=== PATIENT | male | born 1960 | race Caucasian/White ===

== ENCOUNTER 2018-10-02 14:11 | Inpatient (IN) ==
[2018-10-02] MEDS: NS 1,000 ML IV SCH (19:18)
[2018-10-02] MEDS: LOVENOX SUBQ SCH (19:19)
[2018-10-02] MEDS: LEVAQUIN 500 MG/D5W 500 MG/100 ML IVPB IV SCH (19:19)
[2018-10-02 19:40] LABS: BASO# 0.03 X1000 (0.0-0.2); BASO% 0.2 % (0.0-0.8); EOS# 0.12 X1000 (0.0-0.7); EOS% 0.8 % (0.0-10.0); HEMOGLOBIN 15.6 g/dL (14.0-18.0); IMM GRAN# 0.14 X1000 (0.0-0.04); LYMPH# 2.93 X1000 (1.2-3.4); LYMPH% 20.1 % (20.5-51.1); MCH 31.1 PG (27-31); MCHC 34.7 g/dL (33-37); MCV 89.6 FL (81-99); MONO# 0.85 X1000 (0.11-0.59); MONO% 5.8 % (1.7-9.3); MPV 11.7 FL (7.4-10.4); NEUT# 10.51 X1000 (1.4-6.5); NEUT% 72.1 % (42.2-75.2); PLT 178 X1000 (130-400); RBC 5.02 XMIL (4.7-6.1); RDW 13.6 % (11.5-14.5); WBC 14.58 X1000 (4.8-10.8)
[2018-10-02 19:53] LABS: HEMOGLOBIN A1C 5.2 % (4.8-6.0)
[2018-10-02 19:57] LABS: AGAP 11; ALB/GLOB RATIO 1.8; ALBUMIN 3.8 g/dL (3.5-5.0); ALKALINE PHOSPHATASE 79 U/L (32-122); BUN 16 mg/dL (8-22); CALCIUM 8.7 mg/dL (8.8-10.2); CHLORIDE 105 mmol/L (98-107); COSMO 285; CREATININE 0.7 mg/dL (0.7-1.2); ESTIMATED GFR > 60; GLUCOSE 106 mg/dL (70-104); GOT 13 U/L (10-34); GPT 22 U/L (10-44); POTASSIUM 3.5 mmol/L (3.5-5.1); SODIUM 142 mmol/L (136-145); TCO2 26 mmol/L (25-35); TOTAL BILIRUBIN 0.41 mg/dL (0.20-1.00); TOTAL PROTEIN 5.9 g/dL (6.3-8.3)
[2018-10-02] MEDS ORDERED: SODIUM CHLORIDE 0.9% INJ SCH (20:00)
[2018-10-02] MEDS: DUONEB (A & A) INH PRN (21:10)
[2018-10-02] MEDS: AMBIEN PO SCH (21:18)
[2018-10-02] MEDS: PROTONIX IV SCH (21:18)
[2018-10-02] MEDS: ROCEPHIN 1 GM in NS 50 ML IV SCH (21:19)
[2018-10-02] MEDS: NEURONTIN PO SCH (21:19)
[2018-10-02] MEDS: SEROQUEL PO SCH (21:19)
[2018-10-02] MEDS: LIPITOR PO SCH (21:19)
[2018-10-02] MEDS: HUMALOG SUBQ SCH (21:20)
[2018-10-02] MEDS: CARDIZEM PO SCH (21:20)
[2018-10-02 21:29] LABS: ALLEN TEST YES; BE 4.8 mmoll (-3.0-3.0); BLOOD TYPE ARTERIAL; HCO3-(ACT) 28.4 mmoll (20.0-26.0); METHB 0.9 % (0.0-1.5); O2(CT) 19.5 mL/dL (15.0-23.0); PCO2(98.6) 41 mmHg (35-45); PO2(98.6) 75 mmHg (60-100); SAMPLE BLOOD; SAO2 97.2 % (95.0-100.0); THB 15.8 g/dL (11.5-17.4); pH(98.6) 7.46 (7.35-7.45)
[2018-10-02 21:33] LABS: O2HB 87.6 % (95.0-99.0)
--- NOTE | 2018-10-03 00:49 | HISTORY AND PHYSICAL ---
CHIEF COMPLAINT: Shortness of breath, cough, and wheezing. HISTORY OF PRESENT ILLNESS: He is a 57-year-old white male with a known history of generalized chronic anxiety, bipolar disorder. Recently discharged from [facility] by Dr. Mason. Came in with the above symptoms. Patient was treated 2 weeks ago. Failed to improve. He is markedly wheezing. I have given the options. I discharged the patient from my office with outpatient treatment. He came back in the afternoon that he is not feeling better, and readmitted to the hospital with acute COPD exacerbation. PAST MEDICAL HISTORY: Bipolar, COPD, CAD, type 2 diabetes, hyperlipidemia, hypertension, tobacco abuse. PAST SURGICAL HISTORY: Bypass surgery, back surgery. ALLERGIES: Reported to none. MEDICATIONS: Aspirin 325 daily, Spiriva 1 puff daily, Hyzaar 100/12.5 daily, Symbicort 1 puff p.o. b.i.d., Cardizem 30 b.i.d., Lunesta 3 mg 1 tablet daily, thiamine 100 mg daily, folic acid 1 mg daily, Pristiq 50 mg daily, Neurontin 300 t.i.d., lisinopril 25 daily, Lipitor 40 daily, Seroquel 200 daily, nicotine patch. SOCIAL HISTORY: Single. . Smoking half a pack a day. No alcohol. No drug abuse. FAMILY HISTORY: Father a 75-year-old with diabetes and neuropathy. Mother is 72 years old with strokes. Brother had hypertension. Grandmother had of stroke. HEALTH MAINTENANCE: Flu vaccine in June 2016. Pneumococcal June 2016. Last physical December 2016. Colonoscopy declined. REVIEW OF SYSTEMS: HEENT: No headache. No vision problem. No earache. No sore throat. Neck: No goiter. No lymphadenopathy. No bruit. Cardiopulmonary: Coughing, shortness of breath wheezing. No chest pain. GI: No nausea, vomiting, abdominal pain. : No history of hesitancy, frequency, dysuria. No swelling of feet. No joint pain. Neurologic: No focal symptoms or weakness. PHYSICAL EXAMINATION: VITAL SIGNS: Temperature is 98.2 degrees, tachycardic. Blood pressure is 140/80 on room air. 98%. 6 feet 2, 210 pounds. HEENT: Atraumatic, normocephalic. Pupils equal, react to light. TMs are normal. Nose and throat congested. NECK: Supple. No lymphadenopathy. No goiter. CHEST: Bilateral air entry. Wheezing. HEART: Sounds are regular. ABDOMEN: Belly is soft, nontender. Good bowel sounds. NEUROLOGIC: No neurological deficits. RECTAL: Deferred. INVESTIGATIONS: CBC: White cell count 14, hematocrit 45, platelets 178,000. SMA-7 is normal. A1c 5.2. Calcium 8.7. Cardiac enzymes negative. TSH is normal. Flu test was negative. ASSESSMENT AND PLAN: 1. A 57-year-old white male admitted to the hospital basically for acute chronic obstructive pulmonary disease exacerbation, oxygen, bronchodilators, IV Levaquin, ceftriaxone. Judicious use of steroids due to bipolar disorder. 2. Tobacco abuse. Nicotine patch. 3. DVT and GI prophylaxis with Lovenox and Protonix, respectively. 4. Reconcile home medications. 5. Will follow up. cc: Mj Medrano MD
[2018-10-03] MEDS: SYMBICORT 160/4.5 MICROGM INHALER INH SCH ×3 (02:37→19:50)
[2018-10-03] MEDS: HUMALOG SUBQ SCH ×3 (06:55→15:32)
--- NOTE | 2018-10-03 07:23 | EKG Report ---
Test Performed on : 10/02/2018 9:17:00 PM Test Reason : chest pain Blood Pressure : / mmHG Vent. Rate : 074 BPM Atrial Rate : 074 BPM P-R Int : 172 ms QRS Dur : 092 ms QT Int : 396 ms P-R-T Axes : 022 032 205 degrees QTc Int : 439 ms Normal sinus rhythm. T wave abnormality, consider inferolateral ischemia Abnormal ECG When compared with ECG of 06-AUG-2018 14:53, (Unconfirmed) T wave inversion more evident in Lateral leads Confirmed by Donovan GOMEZ, Ronald Hinojosa ([id number]) on 10/03/2018 9:22:20 AM
[2018-10-03] MEDS: CARDIZEM PO SCH ×2 (09:23→21:19)
[2018-10-03] MEDS: NS 1,000 ML IV SCH (09:23)
[2018-10-03] MEDS: LAMICTAL PO SCH (09:23)
[2018-10-03] MEDS: NEURONTIN PO SCH ×3 (09:24→21:20)
[2018-10-03] MEDS: VITAMIN B-1 PO SCH (09:24)
[2018-10-03] MEDS: FOLIC ACID PO SCH (09:24)
[2018-10-03] MEDS: NICODERM PATCH TD SCH (09:24)
[2018-10-03] MEDS: ASPIRIN PO SCH (09:24)
[2018-10-03] MEDS: PRISTIQ ER PO SCH (09:24)
[2018-10-03] MEDS: HYZAAR 100/12.5 MG TAB PO SCH (09:30)
[2018-10-03] MEDS: DUONEB (A & A) INH PRN ×2 (15:59→19:50)
[2018-10-03] MEDS: SPIRIVA INH SCH (15:59)
--- NOTE | 2018-10-03 17:39 | PROGRESS NOTE ---
DATE: 10/03/2018 SUBJECTIVE: The patient is a little better. Decreased wheezing, withdrawal from smoking. No chest pain. No shortness of breath. REVIEW OF SYSTEMS: None reported. OBJECTIVE: Vital signs: Temperature is 98, vitals are stable. HEENT: Within normal limits. Neck: Supple. Chest: Decreased wheezing. Heart: Distant heart sounds. Abdomen: Belly is soft, nontender. Neurologic: No obvious neurological deficits. INVESTIGATIONS: CBC: White cell count 14. ABG: PO2 75, however, carboxyhemoglobin is very high. Chest x-ray was stable. TSH, proBNP was normal. EKG is negative. ASSESSMENT AND PLAN: 1. Acute chronic obstructive pulmonary disease exacerbation. Advised the patient to quit smoking. Continue oxygen, bronchodilators, IV antibiotics. Steroids will be on hold due to bipolar disorder. 2. Chronic nicotine abuse, on Nicotrol patch. 3. Bipolar disorder. Continue other medications. 4. Initiate vaccination protocol prior to the discharge. LEVEL OF DOCUMENTATION: 25 minutes. cc: Mj Medrano MD
[2018-10-03] MEDS: LOVENOX SUBQ SCH (18:47)
[2018-10-03] MEDS: LEVAQUIN 500 MG/D5W 500 MG/100 ML IVPB IV SCH (18:47)
[2018-10-03] MEDS: LIPITOR PO SCH (21:19)
[2018-10-03] MEDS: ROCEPHIN 1 GM in NS 50 ML IV SCH (21:20)
[2018-10-03] MEDS: PROTONIX IV SCH (21:20)
[2018-10-03] MEDS: AMBIEN PO SCH (21:20)
[2018-10-03] MEDS: SEROQUEL PO SCH (21:20)
[2018-10-04] MEDS: HUMALOG SUBQ SCH ×2 (03:34→06:38)
[2018-10-04] MEDS: NS 1,000 ML IV SCH (07:41)
[2018-10-04] MEDS: DUONEB (A & A) INH PRN (08:22)
[2018-10-04] MEDS: SYMBICORT 160/4.5 MICROGM INHALER INH SCH (08:22)
[2018-10-04] MEDS: SPIRIVA INH SCH (08:22)
[2018-10-04] MEDS: NICODERM PATCH TD SCH (09:28)
[2018-10-04] MEDS: NEURONTIN PO SCH (09:28)
[2018-10-04] MEDS: LAMICTAL PO SCH (09:28)
[2018-10-04] MEDS: ASPIRIN PO SCH (09:28)
[2018-10-04] MEDS: CARDIZEM PO SCH (09:28)
[2018-10-04] MEDS: PRISTIQ ER PO SCH (09:28)
[2018-10-04] MEDS: VITAMIN B-1 PO SCH (09:28)
[2018-10-04] MEDS: FOLIC ACID PO SCH (09:28)
[2018-10-04] MEDS: HYZAAR 100/12.5 MG TAB PO SCH (09:29)
[2018-10-04] MEDS ORDERED: PREVNAR 13 IM ONE (10:17)
[2018-10-04 11:35] VITALS: BP 122/76
--- NOTE | 2018-10-05 10:10 | DISCHARGE SUMMARY ---
ADMISSION DATE: 10/02/2018 DISCHARGE DATE: 10/04/2018 DISCHARGING DIAGNOSES: Acute chronic obstructive pulmonary disease exacerbation due to ongoing tobacco abuse. SECONDARY DIAGNOSES: 1. Bipolar disorder. 2. Chronic obstructive pulmonary disease, coronary artery disease. 3. Status post bypass surgery. 4. Type 2 diabetes. 5. Hyperlipidemia. 6. Hypertension. 7. Tobacco abuse. BRIEF HISTORY: Please see the history and physical that was done on 10/02/2018. In brief, he is a 57-year-old white male who was treated outpatient, failed to improve with acute COPD exacerbation. He wants to go back to the hospital with IV antibiotics. The patient continues to smoke. Carboxyhemoglobin is high. Chest x-ray was stable. He was given oxygen, bronchodilators, IV antibiotics. The patient got better and discharged home in a stable condition. LABORATORIES: CBC: White cell count 14, hematocrit 45, platelet 178,000. ABG: pH is 7.46, pCO2 41, PO2 75. Carboxyhemoglobin is 9. SMA 7 is normal. Glucose 112. A1c 5.2. LFTs, cardiac enzymes were normal. TSH is normal. Influenza screening test is negative. Chest x-ray was stable. Initiate Prevnar 13 at the time of discharge. He had a pneumococcal 23 07/20/2016. DISCHARGE INSTRUCTIONS: 1. Continue Levaquin 500 daily. Prescription was given as an outpatient. 2. Quit smoking. 3. ProAir as needed for breakthrough wheezing. Spiriva 1 puff daily. Symbicort 164.5 p.o. b.i.d. 4. Coronary artery disease. Aspirin 325 daily, metoprolol 25 p.o. b.i.d., Cardizem 30 p.o. b.i.d. 5. Hyperlipidemia, Lipitor 40 daily. 6. Type 2 diabetes. Metformin 500 p.o. b.i.d. 7. Tobacco abuse. Nicotrol patches. 8. Hypertension, Hyzaar 100/12.5 daily. 9. For chronic pain, on [place] per the pain specialist and Mobic 15 daily. 10. For bipolar disorder, as per Dr. Mason and Favio. He is on Pristiq ER 50 daily, Lamictal 25 daily, Lorazepam 1 mg b.i.d., Seroquel 200 daily. 11. Chronic pain, Neurontin 300 t.i.d. FOLLOW-UP: Follow up in my office next week. cc: Mj Medrano MD
== END 2018-10-04 13:46 | disposition home or self-care (01) | DRG 192 ==
LOC: DIRADM 14:11 → 4N 14:32
PROVIDERS: ADMIT Internal Medicine; ATTEND Internal Medicine
CPT/HCPCS: 80053; 82805; 82948; 83036; 83880; 84443; 84484; 85025; 87275; 87276; 87804; 90670; 93005; 93010; 94640; 94761; A9270; C9113; J0696; J1650; J1815; J1956; J7030; S0164; XXXXX